=== PATIENT | female | born 1990 | race Caucasian/White ===

== ENCOUNTER 2019-01-11 17:10 | Inpatient (IN) | payer OTHER ==
[~2019-01-11] VITALS: Ht 172.7 cm; Wt 59.0 kg
--- NOTE | 2019-01-11 17:23 | NUR ---
PACIENTE REFIERE DOLOR DE ESPALDA BAJA ARDOR Y MOLESTIA AL ORINAR HACE VARIOS YANEZ.
--- NOTE | 2019-01-11 19:21 | NUR ---
[place]. OFRECIDO POR MR.E. WHITE QUIEN ORIENTA AL PACIENTE SOBRE EL TX. EXTRAE MUESTRAS DE ROSEANN BAJO MEDIDAS ASEPTICAS ROTULA Y ENVIA AL LABORATORIO. ADMINISTRA MEDICAMENTOS JON ORDEN MEDICA.
--- NOTE | 2019-01-12 00:01 | NUR ---
SE ORIENTA PTE ADMINISTRACION DE FLUIDOS DE MANTENIMIENTO,SE UBICA EN JES CON BARANDAS ELEVADAS.
--- NOTE | 2019-01-12 00:48 | NUR ---
PTE ALERTA Y ORIENTADA EN LAS 3 ESFERAS, SE UBICA EN CAMA CON BARANDAS ELEVADAS POR SEGURIDAD. RECIBIENDO 0.9NSS BAJANDO 200ML/HR AREA GERARD DE EDEMA Y ERITEMA. TA CONSULTA A PTE CON . SE MANTIENE EN OBSERVACION.
--- NOTE | 2019-01-12 07:23 | NUR ---
SE RECIBE DE TURNO ANTERIOR. PACIENTE ALERTA Y ORIENTADA EN ELTON ESFERAS. BUEN PATRON RESPIRATORIO. PIEL TIBIA AL TACTO. CANALIZACION PATENTE, GERARD DE EDEMA Y/O ENROJECIMIENTO RECIBIENDO IV FLUID ORDENADO. PACIENTE EN ESPERA DE CONSULTA CON DR ROGEL.
== END 2019-01-14 21:16 | disposition home or self-care (01) | DRG 690 ==
LOC: ER 17:10 → EDBD 01-12 12:28 → SEC-K 01-12 12:28 → MEDJ 01-12 12:28
PROVIDERS: ADMIT Internal Medicine
DX: N39.0 Urinary tract infection, site not specified (principal); N10 Acute pyelonephritis; E86.0 Dehydration

== ENCOUNTER 2020-06-29 16:50 | Emergency (ER) | payer OTHER ==
[~2020-06-29] VITALS: Ht 172.7 cm; Wt 59.0 kg
== END 2020-06-29 21:41 | disposition home or self-care (01) ==
LOC: ER 16:50
DX: O20.8 Other hemorrhage in early pregnancy (principal); Z3A.10 10 weeks gestation of pregnancy

== ENCOUNTER 2021-01-15 06:49 | Inpatient (IN) | payer OTHER ==
[~2021-01-15] VITALS: Ht 172.7 cm; Wt 72.1 kg
[2021-01-15] MEDS ORDERED: PRENATAL TABLE1 EAC1 PO (08:48)
[2021-01-17] MEDS ORDERED: NAPR500T14 PO (08:46)
== END 2021-01-17 13:06 | disposition home or self-care (01) | DRG 807 ==
LOC: LDR 06:49 → OB/GYN 06:49
PROVIDERS: ADMIT Obstetrics & Gynecology; ATTEND Obstetrics & Gynecology
PROC: 10E0XZZ Delivery of Products of Conception, External Approach (ICD-10-PCS; principal; 2021-01-15)
PROC: 10907ZC Drainage of Amniotic Fluid, Therapeutic from Products of Conception, Via Natural or Artificial Opening (ICD-10-PCS; 2021-01-15)
PROC: 3E033VJ Introduction of Other Hormone into Peripheral Vein, Percutaneous Approach (ICD-10-PCS; 2021-01-15)
PROC: 4A1HXFZ Monitoring of Products of Conception, Cardiac Rhythm, External Approach (ICD-10-PCS; 2021-01-15)
DX: O99.824 Streptococcus B carrier state complicating childbirth (principal); Z37.0 Single live birth; Z3A.38 38 weeks gestation of pregnancy